=== PATIENT | female | born 1980 | race Asian ===

== ENCOUNTER → 2017-03-14 | Outpatient (CLI) | payer BC ==
[~2017-03-14] MED LIST: ACET-749 PO; MTR600X PO; PRENTAB26 PO
[2017-03-14 16:49] LABS: URINE APPEARANCE TURBID (CLEAR); URINE BILIRUBIN NEG (NEG); URINE COLOR DK YELLOW; URINE EPITHELIAL CELL AUTO >30 /lpf (0-5); URINE NITRITE NEG (NEG); URINE PH 5.5 (4.5-7.5); URINE SPECIFIC GRAVITY 1.032 (1.000-1.030); UROBILINOGEN NEG (NEG)
[2017-03-14 17:03] LABS: MANUAL MICROSCOPIC REQUIRED? NO; REVIEW REQ? YES
== END | disposition home or self-care (01) ==
LOC: C.LABSPEC 15:30
PROVIDERS: ATTEND Obstetrics & Gynecology
DX: R39.15 Urgency of urination (principal)

== ENCOUNTER → 2017-05-07 | Day surgery (SDC) | payer BC ==
[2017-05-04 11:04] VITALS: BMI 19.0
[~2017-05-07] VITALS: Ht 160 cm; Wt 49.1 kg
[~2017-05-07] MED LIST changes: -ACET-749 PO; +ACETAMINOPHEN 1000 MG/100 ML IV IV ONE; +ATROPINE SULFATE 0.1 MG/ML 5ML SYR IV PRN; +CEFAZOLIN 2000MG IV PUSH 10 ML IV SCH; +CHECK SCOPOLAMINE PATCH PLACEMENT SCH; +CLR10 PO; +DEXAMETHASONE SOD INJ 4 MG/ML VIAL ONE; +EpHEDrine SULFATE INJ 50 MG/ML AMP IV PRN; +FENTANYL CITRATE INJ 50 MCG/1 ML 2 ML VIAL IV PRN; +FENTANYL CITRATE INJ 50 MCG/1 ML 2 ML VIAL ONE; +IBUPROFEN 600 MG TAB PO PRN; +KETOROLAC TROMETHAMINE 30 MG/ML VIAL IV. PRN; +KETOROLAC TROMETHAMINE 30 MG/ML VIAL ONE; +LACTATED RINGER'S 1000ML 1,000 ML IV SCH; +LIDOCAINE HCL 2% 2 ML VIAL (20MG/ML) ONE; +MIDAZOLAM HCL 1 MG/ML 2ML VIAL ONE; -MTR600X PO; +MULT-506 PO; +ONDANSETRON INJ 2 MG/ML 2 ML VIAL IV PRN; +ONDANSETRON INJ 2 MG/ML 2 ML VIAL ONE; +OXYCODONE/ACETAMINOPHEN 5-325 TAB PO PRN; -PRENTAB26 PO; +PROMETHAZINE HCL INJ 12.5 MG in SODIUM CHLORIDE 0.9% 50ML 50 ML IV PRN; +PROMETHAZINE HCL INJ 25 MG in SODIUM CHLORIDE 0.9% 50ML 50 ML IV PRN; +PROPOFOL IV EMULSION 10 MG/ML 20 ML VIAL IV ONE; +SCOPOLAMINE 1.5 MG TDSY TD ONE; +SCOPOLAMINE 1.5 MG TDSY TD SCH; +SODIUM CHLORIDE 0.9% 1000ML 1,000 ML IV SCH
[2017-05-07 12:45] VITALS: BP 136/81; PULSE 65; TEMP 36.7; O2SAT 100; Ht 160 cm; Wt 49.1 kg
--- NOTE | 2017-05-07 13:32 | History & Physical Bridge Note ---
H&P Re-Evaluation Bridge Note: I have examined the patient, reviewed the History & Physical and in the interval since the performance of the History & Physical I have noted the following changes of clinical significance: No changes noted
--- NOTE | 2017-05-07 13:33 | Discharge Instructions ---
Discharge Instructions Date of Service May 07, 2017. Visit Reason for Visit: Vaginal Cyst Discharge Discharge Diagnosis / Problem: Vaginal cyst Discharge Goals Goal(s): Specific goals Activity Recommendations Activity Limitations: per Instructions/Follow-up section Anesthesia . Post Anesthesia Instructions: If you have had General Anesthesia or IV Sedation: * Do not drive today. * Resume driving when surgeon permits. * Do not make important decisions or sign legal documents today. * Call surgeon for: 1. Temperature elevations greater than 101 degrees F. 2. Uncontrollable pain. 3. Excessive bleeding. 4. Persistent nausea and vomiting. 5. Medication intolerance (nausea, vomiting or rash). * For nausea and vomiting use only clear liquids such as: tea, soda, bouillon until nausea subsides, then gradually increase diet as tolerated. * If you have any concerns or questions, call your surgeon's office. If physician is unavailable and it is an emergency, call 911 or go to the nearest emergency room. . Instructions / Follow-Up Instructions / Follow-Up ACTIVITY RECOMMENDATIONS: * Avoid tampons, douching, hot tubs, pools, and intercourse for two weeks. * May shower as usual. * No strenuous activity for 24-48 hours. After 24-48 hours, you may do anything you feel like doing (driving and sports are okay). SPECIAL CARE INSTRUCTIONS: Special Diet: * Mild nausea may occur in the immediate post-operative period. * Take clear liquids such as tea, cola or bouillon until all nausea has subsided; you may then resume your normal diet. Special Care: * Light bleeding and vaginal spotting can last from a few days to 3-4 weeks. Call your doctor if bleeding becomes heavier than the heaviest part of your period. * Check your temperature twice a day for one week. If it goes above 100.4 degrees Fahrenheit (38.0 Celsius), notify your doctor. * Call your doctor's office for an appointment for 6 weeks after your surgery. FOLLOW-UP VISIT: Call your doctor's office for an appointment for 6 weeks after your surgery. Diet Recommendations Recommended Home Diet: resume previous diet Pending Studies Studies pending at discharge: no Medical Emergencies . Who to Call and When: Medical Emergencies: If at any time you feel your situation is an emergency, please call 911 immediately. . Non-Emergent Contact Non-Emergency issues call your: Primary Care Provider . . "Provider Documentation" section prepared by Joselyn Espinoza. . [place] Drug Monitoring Program Search Results: no issues identified
--- NOTE | 2017-05-07 13:35 | History & Physical Bridge Note ---
H&P Re-Evaluation Bridge Note: I have examined the patient, reviewed the History & Physical and in the interval since the performance of the History & Physical I have noted the following changes of clinical significance: To clarify, patient's procedure is being done in Main OR due to surgeon schedule, though original H&P makes mention of planning for surgicenter.
--- NOTE | 2017-05-07 16:17 | [facility] Post Operative Brief Note ---
Immediate Operative Summary Operative Date May 07, 2017. Pre-Operative Diagnosis Vaginal cyst Post-Operative Diagnosis Vaginal cyst Procedure(s) Performed Excision of Vaginal Cyst Surgeon Dr. Espinoza Fixed Route Operator Surgeon(s) NOne Estimated Blood Loss 1 ml Findings Cyst of R vaginal wall with 2x2cm bulb at introitus, and body that tracks approximately 4cm deep x 1cm caliber. Specimens A: Vaginal Epithelium Complication(s) None Disposition Recovery Room / PACU
--- NOTE | 2017-05-07 16:29 | Anesthesiology Progress Note ---
Anesthesia Post Op Note Date & Time May 07, 2017 at 16:29 Vital Signs Pain Intensity: 6 Vital Signs Past 12 Hours Date Time Temp Pulse Resp B/P (MAP) Pulse Ox O2 Delivery O2 Flow Rate FiO2 05/07/17 16:15 67 16 117/72 100 Oxymask 8 05/07/17 16:07 36.1 72 16 114/71 100 Oxymask 8 05/07/17 12:45 36.7 65 18 136/81 (99) 100 Room Air Notes Mental Status: alert / awake / arousable, participated in evaluation Pt Amnestic to Procedure: Yes Nausea / Vomiting: adequately controlled Pain: improving with treatment Airway Patency, RR, SpO2: stable & adequate BP & HR: stable & adequate Hydration State: stable & adequate Anesthetic Complications: no major complications apparent
[2017-05-07 16:55] VITALS: TEMP 36.4
[2017-05-07 17:40] VITALS: BP 131/72; PULSE 65; O2SAT 100
--- NOTE | 2017-05-07 18:15 | OPERATIVE REPORT ---
DATE OF OPERATION: 05/07/2017 PREOPERATIVE DIAGNOSIS: Vaginal cyst. POSTOPERATIVE DIAGNOSIS: Same. PROCEDURE: Excision of vaginal cyst. SURGEON: Dr. Espinoza. SUPERVISOR SANDING: None. ESTIMATED BLOOD LOSS: 1 mL. FINDINGS: Cyst of right vaginal wall. SPECIMENS: Vaginal epithelium. COMPLICATIONS: None. DISPOSITION: Stable to the recovery room. DESCRIPTION: Pauline Garcia is a 37-year-old patient who presented to the office for an annual exam and was found to have a large cyst at the introitus arising from the right portion of the hymenal ring. The patient notes that the cyst is large enough to preclude intercourse and requests removal. She was brought to the operating room, placed on the table in dorsal lithotomy position with candy-cane stirrups, prepped and draped in standard sterile fashion and a hard time-out was taken prior to proceeding. The bladder was emptied of urine via straight catheterization. Attention was then turned to the vagina where the cyst was evident immediately at the introitus. Palpation of the cyst appears to show an approximately 2 x 2 cm round bulb of cyst located at the right portion of the introitus with a roughly 1 x 1 cm particularly thin portion at its tip through which appears a bluish mucin like material. Allis clamps were placed in line with the hymenal ring, both above and below the cyst to apply traction. A 15 blade was then used to incise the vaginal epithelium overlying the cyst. Immediately, a clear mucous like material began to ooze from the cyst. Using the surgeon's fingers, we were able to milk this fluid forward out of the cyst. Once this was completed, the cyst was collapsed, the vaginal wall was normal and the only visible abnormality was a slight excess amount of vaginal epithelium representing where the 2 x 2 cm bulb of cyst had previously been. We decided to excise this and using the 15 blade, made a lenticular incision removing a small piece of vaginal epithelium, leaving enough to close and recreate a normal vaginal profile. Once this was excised to the full extent of the cyst was more readily accessible, a smooth cyst wall lining was present throughout a cavity that tracked approximately 4 cm deep along the right vaginal wall with approximately a fingers width or caliber. I considered whether to dissect the cyst wall free and excise it completely. Based on the anatomic location and the significant depth of the cyst cavity, I was concerned that the benefit of excising the cyst wall was outweighed by the risks of encountering excessive paravaginal bleeding and elected to leave the cyst wall in place. The cyst cavity had been completely decompressed, was wiped out using a 4 x 4 sponge and was completely hemostatic and was free of any remaining mucinous material. The cyst naturally had laid completely collapsed and the decision was made simply to close the opening of the cyst. If this cyst is seen to refill in the future as is possible given the remaining presence of the cyst wall, at that time the risks associated with full excision may be better justified. A 3-0 Vicryl was used in a running locked manner from superior to inferior following the line of the hymenal ring to close the lenticular incision where the excess epithelium had been excised. At the completion of closure, the vaginal orifice appeared completely normal with a small line of suture within the hymenal ring. The patient was then awakened and transferred in stable condition to the recovery room. I attest to the content of the Intraoperative Record and any orders documented therein. Any exception s are noted below.
== END | disposition home or self-care (01) ==
LOC: C.ACU 11:48
PROVIDERS: ATTEND Obstetrics & Gynecology
DX: N89.8 Other specified noninflammatory disorders of vagina (principal); R32 Unspecified urinary incontinence; Z82.79 Family history of other congenital malformations, deformations and chromosomal abnormalities